=== PATIENT | male | born 1965 | race African-American/Black ===

== ENCOUNTER 2016-07-10 19:45 | Emergency (ER) | payer MEDICAID, OTHER ==
[~2016-07-10] VITALS: Ht 177.8 cm; Wt 111.1 kg
[2016-07-10] MEDS ORDERED: CARI350T PO (20:01)
[2016-07-10] MEDS ORDERED: CEPH-570 PO (20:01)
[2016-07-10] MEDS ORDERED: TRAM50TA2 PO (20:01)
[2016-07-10] MEDS ORDERED: HYDR-548 PO (20:01)
[2016-07-10] MEDS ORDERED: LOSA100T15 PO (20:01)
[2016-07-10] MEDS ORDERED: HYDROCODONE/APAP 5-325MG TABLET PO ONE (20:15)
--- NOTE | 2016-07-10 20:27 | NUR ---
Patient discharged to home in stable conditon. Written and verbal after care instructions given. Patient verbalizes understanding of instructions.
[2016-07-10] MEDS ORDERED: HYDROCODONE/APAP 5-325MG TABLET ONE (20:30)
== END 2016-07-10 20:28 | disposition home or self-care (01) ==
LOC: ER 19:48
DX: L03.116 Cellulitis of left lower limb (principal); L03.115 Cellulitis of right lower limb; R60.0 Localized edema; M54.12 Radiculopathy, cervical region; I10 Essential (primary) hypertension; H40.9 Unspecified glaucoma; M06.9 Rheumatoid arthritis, unspecified; F10.20 Alcohol dependence, uncomplicated; F17.200 Nicotine dependence, unspecified, uncomplicated; Z88.6 Allergy status to analgesic agent
CPT/HCPCS: A4663